=== PATIENT | male | born 1965 | race Caucasian/White ===

== ENCOUNTER 2018-09-14 00:06 | Outpatient (CLI) | payer OTHER, SELFPAY ==
--- NOTE | 2018-09-14 06:03 | MERGEMPI_ITS ---
*[facility]* *[facility]* [address] [place] [address] Myocardial Perfusion Imaging - SPECT Johnathan protocol Date of study: 09/14/2018 *PATIENT PRESENTATION* Height: 175.3cm (69in) Blood Pressure: Weight: 87.3kg (192lb) BSA: 2.08m^2 Referring physician: Earle Acre MD Ordering physician: Kelton Mccrary Impressions: Normal perfusion by Tc99m Sestamibi Imaging. Summary: 1. Myocardial perfusion imaging: No myocardial perfusion defects noted. 2. The calculated left ventricular ejection fraction after stress: 57%. No left ventricular regional motion abnormality. 3. Stress: The target heart rate was achieved. Indication: R06.9. History: REASON FOR TESTING: PATIENT REPORTS THAT OVER THE LAST 6 MONTHS HIS EXERCISE TOLERANCE HAS DECREASED FAIRLY MARKEDLY. WHEN HE TRIES TO CLIMB STAIRS OR WALK FAST HE NOTICES A RAPID HEART RATE AND SHORTNESS OF BREATH. HE DENIES ANY CHEST PAIN OR DIAPHORESIS WITH THESE ACTIVITIES. HE DENIES CHEST PAIN/PRESSURE AND SOB UPON ARRIVAL TO TESTING TODAY. SIGNIFICANT PAST MEDICAL HISTORY: HE DOES HAVE A FAMILY HOSTORY OF ISCHEMIC HEART DISEASE SMOKING STATUS: NEVER. EXERCISE ROUTINE: PATIENT IS A PENSIONS RETIREMENT PLAN SPECIALIST AND TRIES TO WALK MUCH HE CAN, THOUGH SOMETIMES IT CAN BE DIFFICULT. Risk factors: Family history of coronary artery disease. ALLERGIES: NO KNOWN MEDICATION ALLERGIES. MEDICATIONS: NO KNOWN HOME MEDICATIONS. Imaging Technique: Protocol: Johnathan protocol. Acquisition: Gated SPECT; 1 day - rest/stress. The patient was imaged in the supine position. Attenuation correction used. Isotope administration: - Rest. Tc[99m]-sestamibi. Dose: 10.5mCi. Injection time: 08:15 PM. Injection to stress time: 00:45. - Stress. Tc[99m]-sestamibi. Dose: 33.5mCi. Injection time: 10:45 AM. 1-2 min before end of exercise Baseline ECG: SINUS BRADYCARDIA. HR 55 BPM. Stress protocol: + +---+ + !Stage !HR !BP (mmHg) ! + +---+ + !Baseline supine !55 !120/82 (95) ! + +---+ + !Baseline standing !63 !120/86 (97) ! + +---+ + !Stage I; 1.7mph, 10degrees; 3 min !95 !140/84 (103)! + +---+ + !Stage II; 2.5mph, 12degrees; 3 min !110!156/90 (112)! + +---+ + !Stage III; 3.4mph, 14degrees; 3 min!132!168/90 (116)! + +---+ + !Recovery; 1 min !128!176/54 (95) ! + +---+ + !Recovery; 3 min !90 !150/78 (102)! + +---+ + !Recovery; 6 min !84 !120/78 (92) ! + +---+ + !Recovery; 9 min !81 !120/78 (92) ! + +---+ + * Stress results: STRESS TEST ENDED IN MINUTES SECONDS DUE TO LEG FATIGUE. NORMAL HEART RATE AND BLOOD PRESSURE RESPONSE TO EXERCISE. MAX HEART RATE: 158 PATIENT REPORTED BRIEF HEART PALPITATIONS IMMEDIATELY UPON RECOVERY. NO OTHER SYMPTOMS REPORTED. 94 % OF TARGET HEART RATE ACHIEVED. MET'S: 10.07 NO ECTOPY. NO ANGINA. NO SIGNIFICANT ST SEGMENT CHANGES. AVERAGE FUNCTIONAL CAPACITY. Maximal heart rate during stress was 158bpm (95% of maximal predicted heart rate). The maximal predicted heart rate was 167bpm. The target heart rate was achieved. The rate-pressure product for the peak heart rate and blood pressure was 24002uh Hg/min. Myocardial perfusion: Imaging information: gated. No myocardial perfusion defects noted. Ventricular Function (Wall Motion): The calculated left ventricular ejection fraction after stress: 57%. No left ventricular regional motion abnormality. Study data: Erale Arce MD supervised and was readily available during the procedure. This study was interpreted by [facility]. Study status: Routine. Consent: The risks, benefits, and alternatives to the procedure were explained to the patient and informed consent was obtained. Procedure: Initial setup. A baseline ECG was recorded. Surface ECG leads and manual cuff blood pressure measurements were monitored. Heart sounds: Normal. Lung sounds: Normal. Treadmill exercise testing was performed using the Johnathan protocol. Study completion: All catheters inserted during the procedure were removed. The patient tolerated the procedure well and was discharged from the lab. Discharge: The patient left the laboratory in stable condition. Birthdate: Patient birthdate: 1965. Sex: Gender: male. Study date: Study date: 09/14/2018. Study time: 00:01 AM. Electronically signed by Earle Arce MD 09/14/2018 17:42
[2018-09-14 07:38] LABS: HCT 46.7 % (40.0-50.0); HGB 16.2 g/dL (13.5-17.5); Mean Corp. HGB Concentration 34.7 g/dL (32.0-36.0); Mean Corpuscular Hemoglobin 31.3 pg (27.0-33.0); Mean Corpuscular Volume 90.2 fL (80-95); Mean Platelet Volume 11.1 fL (8.0-11.0); Platelet Count 172 x1000/uL (130-400); RBC 5.18 m/cumm (4.50-6.00); RBC Distribution Width 13.3 % (11.8-14.1); White Blood Cell Count 5.16 k/cumm (4.4-10.8)
[2018-09-14 09:44] LABS: Anion Gap 9.1 mmol/L (3-11); BUN 22 mg/dL (7-18); CO2 28.9 mmol/L (21.0-32.0); CREATININE 0.91 mg/dL (0.70-1.30); Calcium 8.9 mg/dL (8.5-10.1); Calculated LDL 167 mg/dL; Chloride 106 mmol/L (98-107); Cholesterol 236 mg/dL (50-200); Glucose 97 mg/dL (70-100); HDL Cholesterol 37 mg/dL (40-60); Potassium 4.4 mmol/L (3.5-5.1); Sodium 144 mmol/L (136-145); Triglyceride 160 mg/dL (30-150)
== END 2018-09-14 00:26 ==
PROVIDERS: PCP Family Medicine; Visit Provider Family Medicine
DX: R06.09 Other forms of dyspnea (principal); Z00.00 Encounter for general adult medical examination without abnormal findings; Z82.49 Family history of ischemic heart disease and other diseases of the circulatory system
CPT/HCPCS: 36415; 78452; 80048; 80061; 83721; 85027; 93017

== ENCOUNTER 2020-09-21 10:28 | Outpatient (CLI) | payer OTHER, SELFPAY ==
[2020-09-21 14:09] LABS: Calculated LDL 178 mg/dL (<100); Cholesterol 245 mg/dL (<200); HDL Cholesterol 43 mg/dL (40-60); Triglyceride 124 mg/dL (<150)
== END 2020-09-21 10:29 | disposition home or self-care (01) ==
LOC: LBO 10:28
PROVIDERS: PCP Nurse Practitioner; Visit Provider Nurse Practitioner
DX: E78.2 Mixed hyperlipidemia (principal)
CPT/HCPCS: 36415; 80061

== ENCOUNTER 2020-09-26 09:04 | Outpatient (REF) | payer OTHER, SELFPAY ==
[2020-09-28 16:04] LABS: Helicobacter pylori Ag, Feces Negative (Negative)
== END 2020-09-26 09:05 | disposition home or self-care (01) ==
LOC: NCHCN 09:04
PROVIDERS: PCP Nurse Practitioner; Visit Provider Nurse Practitioner
DX: R12 Heartburn (principal)
CPT/HCPCS: 87338

== ENCOUNTER 2021-07-30 07:26 | Day surgery (SDC) | payer OTHER, SELFPAY ==
--- NOTE | 2021-07-30 06:46 | W.COLOREPORT ---
Colonoscopy Report Date of procedure: 07/30/21 Pre-op diagnosis general: Colon Cancer Screening Post-op diagnosis procedure note: other (polyps and mild diverticulosis) Procedure: Colonoscopy with polypectomy Surgeon: Dahlia Cox Anesthesia Type: General:No Airway Estimated blood loss (mL): 5 Pathology: other (ascending polyps x2, transverse polyp and sigmoid polyp) Complications: None Disposition: same day Indications: The patient is here for Colonoscopy pre-op. He has no known family history of colon cancer, however reports a history of other GI malignancies (exact types unknown) in his mother and maternal uncles. He has not had any bowel habit changes. -Discussed colonoscopy bowel prep as well as the procedure. Discussed possible complications of the procedure to include bleeding, pain, perforation, missed small lesion/polyp, sore throat, aspiration and adverse reaction to the medications. Questions were answered to patient?s satisfaction. No guarantees were implied or given.? Prep: Miralax/Dulcolax Procedure Start Time: 09:16 Procedure End Time: 09:41 Retraction Time: 18 minutes Findings: 4 polyps mild diverticulosis Procedure Description: After informed consent was obtained the patient was taken to the procedure room and placed in a left decubitous position. Monitors were applied and a time out was done. The patients name, date of , procedure, allergies to medications and metal in their body was reviewed. The patient was then sedated. Once sedated and comfortable a rectal exam was done. External exam was normal. Internal exam revealed a normal sphincter tone and no palpable masses. The prostate felt smooth. The scope was then introduced and retro-flexed. No internal hemorrhoids, polyps or masses were identified on retro-flexion. The scope was then advanced to the cecum without difficulty. The ileocecal vlave and appendiceal orifice were identified. The prep was good. The scope was then slowly retracted over 13 minutes back into the rectum. Polyps were removed with a hot snare in the ascending colon x2, transverse colon x1 and sigmoid colon x1. There was mild sigmoid diverticulosis noted. The scope was removed and the patient was woken up and taken back to Same day surgery in stable condition. The patient tolerated the procedure well and there were no immediate complications. Follow up: The patient should follow up in 3-5 years unless they develop changes in bowel habits or other new gastrointestinal complaints.
--- NOTE | 2021-07-30 06:47 | W.PM.DSUDISC ---
Discharge Plan Disposition Patient Disposition: HOME Condition: Good Discharge Details Reason For Visit: colon cancer screening Attending Provider: Dahlia Cox Primary Care Provider: Imani Marte Home Meds and New Rx's Prescriptions: Discontinued bisacodyl [Dulcolax (bisacodyl)] 5 mg tablet,delayed release (DR/EC) 5 mg PO ONCE Qty: 4 0RF Rx Instructions: Take according to provider's instructions for colonoscopy prep. polyethylene glycol 3350 17 gram/dose powder 17 g PO ONCE Qty: 238 0RF Rx Instructions: To be taken as directed by prescriber's office for colonoscopy prep. Discharge Instructions Instructions: Colorectal Polyps (DC), Diverticulosis (DC) Additional Instructions: Findings: 4 polyps mild diverticulosis Follow up: 3-5 years Please call if you develop: fevers >101.5 Nausea or Vomiting Abdominal pain that is not transient Rectal bleeding that is more then a tbsp A hard abdomen and inability to pass gas DAY SURGERY UNIT POST ENDOSCOPY INSTRUCTIONS Instructions for everyone who is given Anesthesia: For your safety, please do the following for the next 24 Hours: a. Do not drive or operate dangerous equipment b. Do not drink alcohol beverages or use any recreational drugs for the first 24 hours or while taking pain medications. The medications in your body may have a reaction that can be dangerous. c. Do not make any important decisions or sign any important papers 1. Generally there are no restrictions on your activity after a day or so has gone by, but you may feel a bit fatigued for a few days. 2. After you arrive home you may have a light meal and return to a normal diet as you can tolerate it without feeling sick to your stomach. 3. After surgery, you may feel pain or discomfort. This should be only transient, but if it persists please contact your doctor. 4. If there are any questions regarding the findings of your procedure, please feel free to contact your doctor. 6. If you are unable to contact your doctor with a problem, contact the hospital at [phone]. 7. Continue all your regular medications unless directed otherwise. I understand the above instructions and have no questions. Signature of Patient or Responsible Adult Escort Date/Time Name of Responsible Adult Escort Signature of Nurse Date/Time Activity:: Activity as Tolerated Diet:: high fiber Discharge Orders Discharge Orders: Discharge Order (Routine); Ordered 07/30/21 Ordered By: Dahlia Cox
--- NOTE | 2021-07-30 08:05 | W.ANESPRE ---
General Info Date of Service Date Performed: 07/30/21 Height: 5 ft 7.5 in Weight: 87.713 kg Body Mass Index (BMI): 29.8 Surgical Procedure: Operation Date: 07/30/21 09:20 Proposed Procedure Side Surgeon p Colonoscopy Dahlia Cox MD Meds Allergies and Home Medications Allergies Allergy/AdvReac Type Severity Reaction Status Date / Time No Known Allergies Allergy Unverified 07/30/21 08:07 Home Medication Medication Instructions Recorded bisacodyl 5 mg tablet,delayed 5 mg PO ONCE #4 tabs 07/19/21 release (Dulcolax (bisacodyl)) polyethylene glycol 3350 17 17 g PO ONCE #238 grams 07/19/21 gram/dose oral powder Current Visit Medications: Current Medications Generic Name Dose Route Start Last Admin Trade Name Freq PRN Reason Stop Dose Admin Hyoscyamine Sulfate 0.125 mg 07/30/21 06:49 Hyoscyamine 0.125 Mg Sl/Oral/Chew SL DIRECTED PRN Ringer's Solution 1,000 mls @ 80 mls/hr 07/30/21 06:00 IV 08/26/21 23:59 [facility] IV Miscellaneous Supplies 1 each 07/30/21 06:00 Iv Access IV 08/26/21 23:59 DIRECTED SARWAT Ondansetron HCl 4 mg 07/30/21 06:49 Ondansetron 4 Mg/2 Ml Vial IVP Q4H PRN PRN Nausea / Vomiting Sodium Chloride 0 ml 07/30/21 06:00 Normal Saline Flush 10 Ml Syr IV 08/26/21 23:59 PRN PRN Sodium Chloride 0 ml 07/30/21 06:00 Normal Saline 10 Ml Vial IJ 08/26/21 23:59 DIRECTED PRN Sterile Water 0 ml 07/30/21 06:00 Water,Injection,Sterile 10 Ml Vial IJ 08/26/21 23:59 DIRECTED PRN PFSH Active Problems Active Problems: Problem Status Onset Code Screening for colon cancer Z12.11 Medical History Medical History (Updated 07/27/21 @ 13:52 by Gaurav Avilez) ADHD (attention deficit hyperactivity disorder), 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 stated this was b ecause he was exhausted and working too much Family history of ischemic heart disease (03/19/13) Heartburn Hyperlipidemia Idiopathic scoliosis (03/19/13) Inattention Ingrowing toenail Insomnia Lipoma Near syncope Onychomycosis Surgical History Surgical History (Updated 07/30/21 @ 08:17 by Zehra Scott) History of dental surgery top front teeth restored as a child due to sledding accident Tobacco Smoking/Tobacco Use Status: Never Passive smoking exposure: Yes Second hand exposure: Yes Alcohol Alcohol Intake: current Alcohol intake frequency: a few times a month Alcohol type: beer Substance Use Substance use: Never Substance use type: does not use Vital Signs and Lab Results Vital Signs Most Recent Vital Signs in EMR: Temp Pulse Resp BP Pulse Ox 36.4 C L 67 14 121/98 H 99 07/30/21 08:18 07/30/21 08:18 07/30/21 08:18 07/30/21 08:18 07/30/21 08:18 Lab Results Blood Type / Crossmatch: No Data to Display Complete Blood Count: No Data to Display Complete Metabolic Panel: No Data to Display Liver Function Panel: No Data to Display Coagulation Panel: No Data to Display Cardiac Panel: No Data to Display Arterial Blood Gas: No Data to Display Venous Blood Gas: No Data to Display Pancreas Panel: No Data to Display Thyroid Panel: No Data to Display Infectious Disease: No Data to Display Blood Cultures: No Data to Display Toxicology Panel: No Data to Display Imaging and Studies Imaging and Studies Study information below may be from another EMR and interpreted by another provider. Please see original notes in EMR for more complete details. Stress Test Summary: 2019: no prefusion defects noted. LVEF 57%. Anesthesia Assessment and Plan Anesthesia History Personal History: No History of Anesthesia Complications Family History: No Family History of Anesthesia Complications Exercise Tolerance Exercise Tolerance: Metabolic Equivalents>4 Cardiac & Pulmonary Exam Cardiac Exam: Normal S1/S2 Heart Sounds Pulmonary Exam: Clear Bilateral Breath Sounds Implantable Cardiac Device Does patient have a Pacemaker or an ICD?: No Airway Exam Known Difficult Airway: No Mallampati Class: 4 Mouth Opening: Narrow (< 3cm) Thyromental Distance: Greater than 3 cm Neck Range of Motion: Limited ROM Neck Circumference: Normal Teeth Condition: Normal Dentition ASA Classification ASA Score: ASA 2 Emergency Case?: No NPO Status NPO Status: NPO Clears >2 hours, Solids >8 hours Anesthesia Plan Resuscitation Status: Full Code Anesthesia Technique: General Anesthesia Airway Planned: Natural Airway Monitors Used: Standard Monitors Preoperative Comments:: 56 yo male for screening colonoscopy. Sig PMHx: GERD (mostly in the past and diet related, ADHD, never smoker, occ EtOH. Stress test 2019: LVEF 57%, no defects.
[2021-07-30 08:10] VITALS: BMI 29.8
[2021-07-30 08:18] VITALS: BP 121/98; PULSE 67; RESP 14; TEMP 36.4; O2SAT 99
[2021-07-30] MEDS: Lactated Ringers 1,000 ML 80 ML IV (08:40)
--- NOTE | 2021-07-30 09:22 | BOWEL_PTH ---
PATIENT: Mino Soni LOC: [facility] U#:[id number] AGE/SX: 56/M ROOM: RE07/30/[address]: Dahlia Cox MD : 1965 BED: DIS: 07/30/2021 SPEC #: [id number] RECD: 07/30/21 11:49 STATUS: RICKY REQ #: [id number] KATHLEEN: 07/30/21 09:[address]: Dahlia Cox DEPT: Surgical Specimen RECD BY: Amberly Rivera ENTERED: 07/30/21 11:51 SP TYPE: Bowel OTHR DR: Imani Marte APRN Tissues: 1 - BIOPSY BOWEL 2 - BIOPSY BOWEL 3 - BIOPSY BOWEL Procedures: GROSS AND MICRO LEVEL 4 Comments: [id number]
[2021-07-30 09:50] VITALS: BP 119/90; PULSE 65; RESP 16; TEMP 36.6; O2SAT 95
--- NOTE | 2021-07-30 09:53 | W.ANESPOSTOP ---
Postoperative Evaluation Date, Time and Location Date Performed: 07/30/21 Time Performed: 09:53 Patient Location: Day Surgery Unit Vital Signs Most Recent Imported Vital Signs: Most Recent Vital Signs Temp Pulse Resp BP Pulse Ox 36.6 C 65 16 119/90 95 07/30/21 09:50 07/30/21 09:50 07/30/21 09:50 07/30/21 09:50 07/30/21 09:50 Pain Score Most Recent Pain Score: Most Recent Pain Score Pain Level 0 07/30/21 09:50 Assessment Mental Status: Awake (Alert & Oriented to Patient Baseline) Airway and Respiratory Function: Patent airway with normal (patient baseline) respiratory exam Cardiovascular Function: Hemodynamically Stable Hydration Status: Adequately Hydrated Nausea & Vomiting: No Nausea or Vomiting Pain: Pt. Denies Any Pain Peripheral Nerve Block: Patient did not receive a nerve block
[2021-07-30 10:07] VITALS: BP 127/100; PULSE 63; RESP 17; TEMP 36.7; O2SAT 97
== END 2021-07-30 10:52 | disposition home or self-care (01) ==
PROVIDERS: PCP Nurse Practitioner; Visit Provider Surgery
PROC: 0DJD8ZZ Inspection of Lower Intestinal Tract, Via Natural or Artificial Opening Endoscopic (ICD-10-PCS; CPT 45378; principal; 2021-07-30 09:15)
DX: Z12.11 Encounter for screening for malignant neoplasm of colon (principal); K57.30 Diverticulosis of large intestine without perforation or abscess without bleeding; K63.5 Polyp of colon
CPT/HCPCS: 45385; 88305

== ENCOUNTER 2021-10-09 08:16 | Outpatient (CLI) | payer OTHER, SELFPAY ==
[2021-10-09 09:33] LABS: ALT 84 U/L (16-63); AST 36 U/L (15-37); Albumin 3.7 g/dL (3.4-5.0); Alkaline Phosphatase 112 U/L (46-116); Anion Gap 10.4 mmol/L (3-11); BUN 20 mg/dL (7-18); Bilirubin, Total 0.6 mg/dL (0.2-1.0); CO2 27.6 mmol/L (21.0-32.0); Calcium 8.9 mg/dL (8.5-10.1); Calculated LDL 169 mg/dL (<100); Chloride 103 mmol/L (98-107); Cholesterol 231 mg/dL (<200); Glucose 99 mg/dL (74-106); HDL Cholesterol 44 mg/dL (40-60); Sodium 141 mmol/L (136-145); Total Protein 6.8 g/dL (6.4-8.2); Triglyceride 90 mg/dL (<150)
== END 2021-10-09 08:17 | disposition home or self-care (01) ==
LOC: LBO 08:16
PROVIDERS: PCP Nurse Practitioner; Visit Provider Nurse Practitioner
DX: E78.2 Mixed hyperlipidemia (principal)
CPT/HCPCS: 36415; 80053; 80061

== ENCOUNTER 2021-12-10 09:17 | Outpatient (CLI) | payer OTHER, SELFPAY ==
[2021-12-10 10:08] LABS: ALT 128 U/L (16-63); AST 54 U/L (15-37); Albumin 3.9 g/dL (3.4-5.0); Alkaline Phosphatase 109 U/L (46-116); Bilirubin, Total 0.9 mg/dL (0.2-1.0); Calculated LDL 156 mg/dL (<100); Cholesterol 223 mg/dL (<200); HDL Cholesterol 53 mg/dL (40-60); Total Protein 7.3 g/dL (6.4-8.2); Triglyceride 74 mg/dL (<150)
[2021-12-10 10:20] LABS: Bilirubin, Direct 0.1 mg/dL (0.0-0.2)
[2021-12-10 18:29] LABS: PSA, Screening 2.4 ng/mL (<=3.5)
[2021-12-11 09:46] LABS: Hepatitis C Ab w Rflx HCV PCR Negative (Negative)
[2021-12-11 10:02] LABS: HIV-1/2 Ag & Ab Screen Negative (Negative)
== END 2021-12-10 09:18 | disposition home or self-care (01) ==
LOC: LBO 09:20
PROVIDERS: PCP Nurse Practitioner; Visit Provider Nurse Practitioner
DX: E78.2 Mixed hyperlipidemia (principal); R79.89 Other specified abnormal findings of blood chemistry; N40.0 Benign prostatic hyperplasia without lower urinary tract symptoms; Z12.5 Encounter for screening for malignant neoplasm of prostate; Z11.4 Encounter for screening for human immunodeficiency virus [HIV]; Z11.59 Encounter for screening for other viral diseases
CPT/HCPCS: 36415; 80061; 80076; 84153; 86803; 87389

== ENCOUNTER 2022-04-01 03:09 | Outpatient (CLI) | payer OTHER, SELFPAY ==
[2022-04-01 09:55] LABS: ALT 60 U/L (16-63); AST 40 U/L (15-37); Albumin 3.7 g/dL (3.4-5.0); Alkaline Phosphatase 102 U/L (46-116); Bilirubin, Direct 0.1 mg/dL (0.0-0.2); Bilirubin, Total 0.7 mg/dL (0.2-1.0); Total Protein 6.9 g/dL (6.4-8.2)
[2022-04-02 13:00] LABS: ANA Interpretation Negative (Negative)
[2022-04-02 14:05] LABS: HBs Antibody, Qual Negative (See Note); HBs Antibody, Quant <3.1 mIU/mL (See Note); Hepatitis B Core Antibody Negative (Negative); Hepatitis B surface Ag Negative (Negative); Hepatitis C Ab w Rflx HCV PCR Negative (Negative)
== END 2022-04-01 03:10 | disposition home or self-care (01) ==
LOC: LBO 03:09
PROVIDERS: PCP Nurse Practitioner; Visit Provider Nurse Practitioner
DX: R79.89 Other specified abnormal findings of blood chemistry (principal); E78.5 Hyperlipidemia, unspecified; N40.1 Benign prostatic hyperplasia with lower urinary tract symptoms; Z79.899 Other long term (current) drug therapy; F90.0 Attention-deficit hyperactivity disorder, predominantly inattentive type
CPT/HCPCS: 36415; 80076; 86704; 86706; 86803; 87340; 86038

== ENCOUNTER 2022-04-01 08:47 | Outpatient (CLI) | payer OTHER, SELFPAY ==
--- NOTE | 2022-04-01 08:45 | RT.EKG_ITS ---
APPROVED REPORT Exam: Resting ECG Reason for Exam: on [facility] Patient Location: O HR:68 bpm ECG Measurements Heart Rate 68 AXIS HI 173 P 15 QRSd 123 QRS -48 QT 423 T 91 QTc 450 Conclusion Sinus rhythm...normal P axis, V-rate 50- 99 Left anterior fascicular block Artifact in lead(s) I,II,III,aVR,aVL,aVF,V1,V2
== END 2022-04-01 08:48 | disposition home or self-care (01) ==
LOC: DI.KIM 08:48
PROVIDERS: PCP Nurse Practitioner; Visit Provider Nurse Practitioner
DX: Z51.81 Encounter for therapeutic drug level monitoring (principal); R94.31 Abnormal electrocardiogram [ECG] [EKG]; I44.4 Left anterior fascicular block
CPT/HCPCS: 93010

== ENCOUNTER 2022-11-19 09:49 | Day surgery (SDC) | payer BC, SELFPAY ==
[2022-11-19] VITALS (10 sets, daily range): BP systolic 100–122; BP diastolic 63–85; PULSE 53–72; RESP 16–23; TEMP 36.3–36.6; O2SAT 92–100; BMI 28.1
--- NOTE | 2022-11-19 10:15 | DI.CT_ITS ---
Exam(s) CT ABDOMEN PELVIS W EXAM: CT ABDOMEN PELVIS W CLINICAL HISTORY: RLQ abdominal pain. TECHNIQUE: Imaging Protocol: Axial computed tomography images with coronal and sagittal reformatted images were created and reviewed CONTRAST MATERIAL: Intravenous: Omnipaque-350 100cc Oral: None COMPARISON: No exams were available for comparison FINDINGS: VISUALIZED LUNG BASES: No nodules nor pleural effusions evident. ABDOMEN: There is no ascites. LIVER: There are no focal hepatic lesions evident. No dilated intrahepatic ducts. GALLBLADDER/BILIARY: No obvious gallbladder pathology. CBD is not dilated. PANCREAS: No evidence of pancreatic mass nor dilatation of the pancreatic duct. SPLEEN: Spleen is not enlarged. No obvious intrasplenic lesions. Splenic and portal veins are paten t. ADRENALS: There are no significant adrenal masses. KIDNEYS:No cysts evident. No solid renal masses. No calculi nor hydronephrosis.. ABDOMINAL AORTA: Abdominal aorta is not enlarged. LYMPH NODES:There is no retroperitoneal nor paraaortic adenopathy. ABDOMINAL WALL: No evidence of significant anterior abdominal wall nor inguinal hernia. GI: No evidence of bowel obstruction PELVIS: GI: The appendix is abnormal. Contains appendicoliths and is also swollen-thickened to diameter 1 cm . Mild periappendiceal streaking. No free air. No abscess.Consistent with acute appendicitis. The re is no significant sigmoid diverticular disease. Colon is mostly collapsed. LYMPH NODES: There is no intrapelvic nor inguinal adenopathy. REPRODUCTIVE: Prostate size upper normal. Seminal vesicles unremarkable. URINARY BLADDER: No calculi nor obvious masses evident OSSEOUS: No fractures and no significant osseous lesions. 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 IMPRESSION: 1. Findings are consistent with acute appendicitis. No evidence of rupture nor periappendiceal absce ss at this time. Report called by myself to ER provider. RADIATION DOSE DELIVERED: 764.27mGy.cm Total DLP DATA REPOSITORY: All CT scans at this facility are submitted to the National Radiology Data Registry (NRDR) Dose Index Registry (DIR) with the [employer] (ACR). RADIATION OPTIMIZATION: All CT scans at this facility use at least one of these dose optimization te chniques: automated exposure control; mA and/or kV adjustment per patient size (includes targeted exa ms where dose is matched to clinical indication); or iterative reconstruction.
[2022-11-19] MEDS: Ondansetron 4 MG/2 ML VIAL IVP (10:24)
[2022-11-19] MEDS: MORPHine 4 MG/ML SYR IVP (10:24)
[2022-11-19] MEDS: Normal Saline 1,000 ML 1000 ML IV (10:28)
[2022-11-19 10:31] LABS: Lactate 0.9 mmol/L (0.6-1.4)
[2022-11-19 10:32] LABS: Abs Immature Grans 0.04 10^3/uL (0.0-0.06); Absolute Basophil Count 0.05 10^3/uL (0.0-0.2); Absolute Eosinophil Count 0.02 10^3/uL (0.0-0.7); Absolute Lymphocyte Count 1.01 10^3/uL (1.2-3.4); Absolute Monocyte Count 0.69 10^3/uL (0.1-0.8); Absolute Neutrophil Count 10.07 10^3/uL (1.2-6.7); Basophils % 0.4; Eosinophils % 0.2; HCT 45.1 % (40.0-50.0); HGB 15.2 g/dL (13.5-17.5); Immature Grans % 0.3; Lymphocytes % 8.5; MCH 31.3 pg (27.0-33.0); MCHC 33.7 % (32.0-36.0); MCV 93 fL (80-95); MPV 10.7 fL (8.0-11.0); Monocytes % 5.8; Neutrophils % 84.8; Platelet Count 182 10^3/uL (130-400); RBC 4.86 10^6/uL (4.36-5.78); RDW 13.1 % (11.8-14.1); RDW-SD 44.8 fL; WBC 11.88 10^3/uL (4.4-10.8)
--- NOTE | 2022-11-19 10:33 | ED.GENADUL_ITS ---
Discharge Plan Disposition Patient Disposition: Other Disposition Not Listed Other Facility: To OR, pending admit vs discharge from PACU Condition: Serious Discharge Details Chief Complaint: Abd Prob Clinical Impression: Appendicitis Attending Provider: Lor Hendricks Primary Care Provider: Imani Marte ED Provider: Korin Cuadra Discharge Data Discharge Date/Time-TO BE ENTERED AT DEPARTURE: 11/19/22 12:08 Medical Decision Making 57yo M with hx BPH presenting with severe acute RLQ abdominal pain. Vital signs reassuring, RLQ tenderness with rebound and guarding on exam very concerning for appendicitis. IV morphine and IV zofran for symptoms. Labs reviewed as below, CBC & CMP reassuring, mild leukocytosis, lipase normal, lactate normal. CT abd/pelvis independently reviewed, acute appendicitis, agree with radiology read below. IV zosyn ordered and Dr. Hendricks from surgery consulted; patient taken to OR. Imaging Data Radiologic Study: Imaging: CT Scan Radiologist's impression: IMPRESSION: 1. Findings are consistent with acute appendicitis.? No evidence of rupture nor periappendiceal abscess at this time. Lab Data Lab results reviewed: Yes I reviewed the patient's lab results. Labs: Laboratory Tests Range/Units 11/19/22 11/19/22 11/19/22 10:13 10:13 10:13 WBC (4.4-10.8) 10^3/uL 11.88 H RBC (4.36-5.78) 10^6/uL 4.86 Hgb (13.5-17.5) g/dL 15.2 Hct (40.0-50.0) % 45.1 MCV (80-95) fL 93 MCH (27.0-33.0) pg 31.3 MCHC (32.0-36.0) % 33.7 RDW (11.8-14.1) % 13.1 Plt Count (130-400) 10^3/uL 182 MPV (8.0-11.0) fL 10.7 Immature Gran % 0.3 Neutrophils % 84.8 Lymphocytes % 8.5 Monocytes % 5.8 Eosinophils % 0.2 Basophils % 0.4 Nucleated RBC % (0.0-0.3) % 0.0 Absolute Neutrophils (1.2-6.7) 10^3/uL 10.07 H Absolute Lymphocytes (1.2-3.4) 10^3/uL 1.01 L Absolute Monocytes (0.1-0.8) 10^3/uL 0.69 Absolute Eosinophils (0.0-0.7) 10^3/uL 0.02 Absolute Basophils (0.0-0.2) 10^3/uL 0.05 VBG Lactate (0.6-1.4) mmol/L 0.9 Sodium (136-145) mmol/L 140 Potassium (3.5-5.1) mmol/L 3.5 Chloride (98-107) mmol/L 104 Carbon Dioxide (21.0-32.0) mmol/L 30.0 Anion Gap (3-11) mmol/L 6.0 BUN (7-18) mg/dL 24 H Creatinine (0.70-1.30) mg/dL 0.9 Est GFR (CKD-EPI 2020) (mL/min/1.73m2) 99.62 Glucose (74-106) mg/dL 126 H Calcium (8.5-10.1) mg/dL 9.2 Total Bilirubin (0.2-1.0) mg/dL 0.8 AST (15-37) U/L 28 ALT (16-63) U/L 61 Alkaline Phosphatase (46-116) U/L 93 Total Protein (6.4-8.2) g/dL 6.8 Albumin (3.4-5.0) g/dL 3.8 Lipase (16-77) U/L 21 Urine Color (Yellow) Urine Clarity (Clear) Urine pH (5-8) Ur Specific [place] (1.005-1.025) Urine Protein (Negative) mg/dL Urine Ketones (Negative) mg/dL Urine Blood (Negative) Urine Nitrite (Negative) Urine Bilirubin (Negative) Urine Urobilinogen (Up to 0.2) mg/dL Ur Leukocyte Esterase (Negative) Urine Glucose (Negative) mg/dL Range/Units 11/19/22 11:28 WBC (4.4-10.8) 10^3/uL RBC (4.36-5.78) 10^6/uL Hgb (13.5-17.5) g/dL Hct (40.0-50.0) % MCV (80-95) fL MCH (27.0-33.0) pg MCHC (32.0-36.0) % RDW (11.8-14.1) % Plt Count (130-400) 10^3/uL MPV (8.0-11.0) fL Immature Gran % Neutrophils % Lymphocytes % Monocytes % Eosinophils % Basophils % Nucleated RBC % (0.0-0.3) % Absolute Neutrophils (1.2-6.7) 10^3/uL Absolute Lymphocytes (1.2-3.4) 10^3/uL Absolute Monocytes (0.1-0.8) 10^3/uL Absolute Eosinophils (0.0-0.7) 10^3/uL Absolute Basophils (0.0-0.2) 10^3/uL VBG Lactate (0.6-1.4) mmol/L Sodium (136-145) mmol/L Potassium (3.5-5.1) mmol/L Chloride (98-107) mmol/L Carbon Dioxide (21.0-32.0) mmol/L Anion Gap (3-11) mmol/L BUN (7-18) mg/dL Creatinine (0.70-1.30) mg/dL Est GFR (CKD-EPI 2020) (mL/min/1.73m2) Glucose (74-106) mg/dL Calcium (8.5-10.1) mg/dL Total Bilirubin (0.2-1.0) mg/dL AST (15-37) U/L ALT (16-63) U/L Alkaline Phosphatase (46-116) U/L Total Protein (6.4-8.2) g/dL Albumin (3.4-5.0) g/dL Lipase (16-77) U/L Urine Color (Yellow) Yellow Urine Clarity (Clear) Clear Urine pH (5-8) 7.0 Ur Specific [place] (1.005-1.025) 1.010 Urine Protein (Negative) mg/dL Trace H Urine Ketones (Negative) mg/dL 15 H Urine Blood (Negative) Negative Urine Nitrite (Negative) Negative Urine Bilirubin (Negative) Negative Urine Urobilinogen (Up to 0.2) mg/dL 0.2 Ur Leukocyte Esterase (Negative) Negative Urine Glucose (Negative) mg/dL Negative HPI General Mode of arrival: ambulatory . Date/Time Provider Initiated Documentation: 11/19/22 09:53 . Limitations to Documentation: no limitations . Information obtained by: patient . HPI Narrative: 57yo M with hx BPH presenting for acute abdominal pain. Pain started overnight and is severe and worsening. Pain is diffuse, but it hurts to touch his right lower abdomen. Nausea, no vomiting. Normal bowel movement this morning. He is otherwise in his usual state of health with no fevers, chills, rash, bloody stool, dysuria, hematuria, flank pain, chest pain, shortness of breath, or other concerns. Related Data Home Medications Medication Instructions Recorded Confirmed acetaminophen 500 mg tablet 1,000 mg PO Q6H PRN headache/pain 08/17/21 11/19/22 (Tylenol Extra Strength) cetirizine 10 mg capsule (Zyrtec) 10 mg PO DAILY PRN 08/17/21 11/19/22 ibuprofen 600 mg tablet 600 mg PO Q6H PRN 08/17/21 11/19/22 dextroamphetamine-amphetamine ER 30 mg PO DAILY #28 caps 09/23/22 09/23/22 30 mg 24hr capsule,extend release dextroamphetamine-amphetamine ER 30 mg PO DAILY #28 caps 09/23/22 09/23/22 30 mg 24hr capsule,extend release dextroamphetamine-amphetamine ER 30 mg PO DAILY #28 caps 09/23/22 11/19/22 30 mg 24hr capsule,extend release (Adderall XR) tamsulosin 0.4 mg capsule (Flomax) 0.8 mg PO DAILY #180 caps 11/04/22 11/19/22 Previous Rx's Medication Instructions Recorded dextroamphetamine-amphetamine ER 30 mg PO DAILY #28 caps 09/23/22 30 mg 24hr capsule,extend release dextroamphetamine-amphetamine ER 30 mg PO DAILY #28 caps 09/23/22 30 mg 24hr capsule,extend release dextroamphetamine-amphetamine ER 30 mg PO DAILY #28 caps 09/23/22 30 mg 24hr capsule,extend release (Adderall XR) tamsulosin 0.4 mg capsule (Flomax) 0.8 mg PO DAILY #180 caps 11/04/22 Allergies Allergy/AdvReac Type Severity Reaction Status Date / Time DEET Allergy Unknown Uncoded 11/19/22 09:53 Seasonal allergies Allergy Unknown Uncoded 11/19/22 09:53 General Stated Complaint: Abd Prob ROBIN: 3 Review of Systems Narrative: see HPI PFSH All Active Problems (Updated 11/19/22 @ 12:43 by Korin Cuadra MD) Appendicitis (Acute) Acute appendicitis (Acute) BPH w urinary obs/LUTS (Acute) Gallbladder polyp (Acute) ADHD (attention deficit hyperactivity disorder), inattentive type (Acute 03/12/16) Hyperlipidemia (Acute) Tubulovillous adenoma of colon (Acute) Tubular adenoma of colon (Acute) Screening for colon cancer (Acute) Medical History 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 stated this was b ecause he was exhausted and working too much Family history of ischemic heart disease (03/19/13) Heartburn Idiopathic scoliosis (03/19/13) Inattention Ingrowing toenail Insomnia Lipoma Near syncope Onychomycosis Surgical History History of colonoscopy (~07/2021) History of dental surgery top front teeth restored as a child due to sledding accident Family History Mother Breast cancer Mass of colon non cancer Father Alcohol abuse Depression Sister No problems noted. Brother No problems noted. Maternal Grandfather , late 70s Heart disease Hyperlipidemia Hypertension Lung disease Paternal Grandfather , 60 Parkinson disease Maternal Grandmother , late 70s Diabetes Heart disease Paternal Grandmother , early 80s Heart disease Daughter Sensitive skin Daughter Sensitivity to sunlight Social History Smoking/Tobacco Use Status: Never Second Hand Exposure: Yes Smoking risk assessment performed?: Yes Alcohol Intake: current Alcohol Intake frequency: a few times a month Alcohol type: beer Drug use: Never Substance use type: does not use Details: alcohol: t-3, beer Adopted: No Caregiver/Support person: No Foster care: No Household members: significant other and children Housing: house Number of Children: 3 number of grandchildren: 9 Communication Needs: Hard of Hearing and Corrective Lenses Education Level: high school Do you need help understanding health information?: Rarely current occupation: septic pump truck driver Pets and animals: Yes Pets and animals: cat(s) and dog(s) Sexually active: Yes Do you think of yourself as: straight/heterosexual Current gender identity: male What is your relationship status?: living with partner How often do you talk on the phone with friends or family?: twice per week How often do you attend pentecostalism or mormon services?: 1-3 times per year Do you belong to any clubs or organized social groups?: no Panel score (0-1 are the most socially isolated patients): 1 What type of physical activity do you participate in: none Duration: 15-30 minutes/day Frequency: 1-2 times per week Lyla/Sabianist: Temple Special lyla needs: No Seatbelt use: always Helmet use: Yes Helmet use: always Drive intox 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 Head: Normocephalic, atraumatic Neck: Trachea midline, Neck supple. ENT: MMM. No oropharygeal lesions or exudate. Cardiac: RRR, no murmurs appreciated Resp: No respiratory distress. CTAB. Abd: Soft, non-distended. Guarding on right. Rebound tenderness RLQ. : No suprapubic tenderness. Extremities: No deformities. No peripheral edema. Neurologic: GCS 15. Moves all extremities freely against gravity Course Vital Signs Vital signs: Vital Signs Temperature 36.6 C 11/19/22 09:49 Pulse 60 11/19/22 09:49 Respiratory Rate 16 11/19/22 09:49 Blood Pressure 115/81 11/19/22 09:49 Pulse Oximetry 98 11/19/22 09:49 Temperature 36.6 C 11/19/22 09:49 Temperature Source Temporal Artery Scan 11/19/22 09:49 Pulse 60 11/19/22 09:49 Respiratory Rate 16 11/19/22 09:49 Respiratory Effort Normal 11/19/22 09:52 Blood Pressure 115/81 11/19/22 09:49 Blood Pressure Position Sitting 11/19/22 09:49 Pulse Oximetry 98 11/19/22 09:49 Oxygen Delivery Method Room Air 11/19/22 09:49 Oxygen Flow Rate 0 11/19/22 09:49 Pain Level 8 11/19/22 09:49 PAWSS Have you Been Recently Intoxicated or Drunk Within the Last 30 days?: No Have you Ever Experienced Previous Episodes of Alcohol Withdrawal?: No Have you ever Experienced Withdrawal Seizures?: No Have you ever Experienced Delirium Tremens(DT)s?: No Have you ever undergone Alcohol Rehabilitation Treatment (i.e, inpt ot outpatient treatment programs)?: No Have you ever Experienced Blackouts?: No Have you ever Combined Alcohol with other Downers within the last 90 days?: No Have you ever Combined Alcohol with any other Substance of Abuse during the last 90 days?: No Result: 0
[2022-11-19] MEDS: Normal Saline - Diluent 50 ML VIAL IJ (10:37)
[2022-11-19] MEDS: Normal Saline Flush 10 ML SYR IVP (10:38)
[2022-11-19] MEDS: Omnipaque 350 MG/ML 500 ML BTL-Imaging package 100 ML IJ (10:38)
[2022-11-19 10:53] LABS: ALT 61 U/L (16-63); AST 28 U/L (15-37); Albumin 3.8 g/dL (3.4-5.0); Alkaline Phosphatase 93 U/L (46-116); BUN 24 mg/dL (7-18); Bilirubin, Total 0.8 mg/dL (0.2-1.0); CREATININE 0.9 mg/dL (0.70-1.30); Calcium 9.2 mg/dL (8.5-10.1); Chloride 104 mmol/L (98-107); Estimated GFR 99.62 (mL/min/1.73m2); Glucose 126 mg/dL (74-106); Lipase 21 U/L (16-77); Potassium 3.5 mmol/L (3.5-5.1); Sodium 140 mmol/L (136-145); Total Protein 6.8 g/dL (6.4-8.2)
--- NOTE | 2022-11-19 11:32 | HPE_ITS ---
Date of service: 11/19/22 Time of Service: 11:32 Assessment and Plan Assessment and plan (1) Acute appendicitis: Status: Acute Assessment and plan: Informed consent is obtained for the procedural (explained in simple layman's terms that the pt and/or family could understand) explaining risks vs benefits and alternatives to the procedure and consequences if we do not do the procedure. Risks include but are not limited to: bleeding, infections, pneumonia, blood clots/DVT/PE, anesthesia (aspiration, damage to teeth/airway/ND/CVA//prolonged mechanical ventilation/PTX/IV infections), damage to bowel, bladder, blood vessels, Wound infections requiring further surgery. ?Scarring and disfigurement. Subsequent bowel obstructions from scar tissue.? Chronic pain or numbness from the incision, or hernia. Possible open procedure if minimally invasive procedure is being attempted. (2) BPH w urinary obs/LUTS: Status: Acute (3) ADHD (attention deficit hyperactivity disorder), inattentive type: Status: Acute (4) Hyperlipidemia: Status: Acute Qualifiers: Hyperlipidemia type: moderate mixed hyperlipidemia not requiring statin therapy Qualified Code(s): E78.2 - Mixed hyperlipidemia (5) Tubulovillous adenoma of colon: Status: Acute History of Present Illness Narrative: Patient is a 57-year-old male who presented to the ER complaining of right lower quadrant abdominal pain and nausea. The pain started last night. Denies any other trauma or bad foods. He has never had pain like this before. He feels nauseous. He was had fever and sweats. He has no appetite. He has no prior history of any abdominal surgery. His only surgery was a colonoscopy. He had no problems with anesthesia. Past medical history noted. He does not smoke. CT 11/19 GI: The appendix is abnormal.? Contains appendicoliths and is also swollen- thickened to diameter 1 cm.? Mild periappendiceal streaking.? No free air.? No abscess.Consistent with acute appendicitis.? There is no significant sigmoid diverticular disease.? Colon is mostly collapsed. 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 stated this was b ecause he was exhausted and working too much Family history of ischemic heart disease (03/19/13) Heartburn Idiopathic scoliosis (03/19/13) Inattention Ingrowing toenail Insomnia Lipoma Near syncope Onychomycosis Surgical History History of colonoscopy (~07/2021) History of dental surgery top front teeth restored as a child due to sledding accident Family History Mother Breast cancer Mass of colon non cancer Father Alcohol abuse Depression Sister No problems noted. Brother No problems noted. Maternal Grandfather , late 70s Heart disease Hyperlipidemia Hypertension Lung disease Paternal Grandfather , 60 Parkinson disease Maternal Grandmother , late 70s Diabetes Heart disease Paternal Grandmother , early 80s Heart disease Daughter Sensitive skin Daughter Sensitivity to sunlight Social History Smoking/Tobacco Use Status: Never Second Hand Exposure: Yes Smoking risk assessment performed?: Yes Alcohol Intake: current Alcohol Intake frequency: a few times a month Alcohol type: beer Drug use: Never Substance use type: does not use Details: alcohol: t-3, beer Adopted: No Caregiver/Support person: No Foster care: No Household members: significant other and children Housing: house Number of Children: 3 number of grandchildren: 9 Communication Needs: Hard of Hearing and Corrective Lenses Education Level: high school Do you need help understanding health information?: Rarely current occupation: rear load truck driver Pets and animals: Yes Pets and animals: cat(s) and dog(s) Sexually active: Yes Do you think of yourself as: straight/heterosexual Current gender identity: male What is your relationship status?: living with partner How often do you talk on the phone with friends or family?: twice per week How often do you attend confucianism or orthodoxy services?: 1-3 times per year Do you belong to any clubs or organized social groups?: no Panel score (0-1 are the most socially isolated patients): 1 What type of physical activity do you participate in: none Duration: 15-30 minutes/day Frequency: 1-2 times per week Lyla/Lutheran: Episcopalian Special lyla needs: No Seatbelt use: always Helmet use: Yes Helmet use: always Drive intox or ride w/intox commercial driver's license driver: No Do you feel safe at home: Yes Do you feel safe in your relationship?: Yes Meds Allergies and Home Medications Allergies Allergy/AdvReac Type Severity Reaction Status Date / Time DEET Allergy Unknown Uncoded 11/19/22 09:53 Seasonal allergies Allergy Unknown Uncoded 11/19/22 09:53 Home Medications Medication Instructions Recorded Confirmed Type acetaminophen 500 mg tablet 1,000 mg PO Q6H PRN headache/pain 08/17/21 11/19/22 History (Tylenol Extra Strength) cetirizine 10 mg capsule (Zyrtec) 10 mg PO DAILY PRN 08/17/21 11/19/22 History ibuprofen 600 mg tablet 600 mg PO Q6H PRN 08/17/21 11/19/22 History dextroamphetamine-amphetamine ER 30 mg PO DAILY #28 caps 09/23/22 09/23/22 Rx 30 mg 24hr capsule,extend release dextroamphetamine-amphetamine ER 30 mg PO DAILY #28 caps 09/23/22 09/23/22 Rx 30 mg 24hr capsule,extend release dextroamphetamine-amphetamine ER 30 mg PO DAILY #28 caps 09/23/22 11/19/22 Rx 30 mg 24hr capsule,extend release (Adderall XR) tamsulosin 0.4 mg capsule (Flomax) 0.8 mg PO DAILY #180 caps 11/04/22 11/19/22 Rx Exam Const Other: PHYSICAL EXAM GENERAL APPEARANCE: Alert, healthy appearance, oriented, x 3,? in no acute distress HYDRATION: Well hydrated HEAD, EYES, EARS, NECK, THROAT: Head is normocephalic, pupils equal, round, reactive to light and accommodation, ocular movement intact, sclera clear and no jaundice. ?Dentition intact. LUNGS: normal respiration/normal chest excursion. ?Clear to auscultation bilaterally. ?No wheeze. ?HEART: Regular rate and rhythm. no murmurs ABDOMEN: hypoactive BS. RLQ pain/no radiation. ? No hernias.? Results Labs 11/19/22 10:13 11/19/22 10:13 Labs: Laboratory Results - last 24 hr 11/19/22 11/19/22 11/19/22 10:13 10:13 10:13 WBC 11.88 H RBC 4.86 Hgb 15.2 Hct 45.1 MCV 93 MCH 31.3 MCHC 33.7 RDW 13.1 Plt Count 182 MPV 10.7 Immature Gran % 0.3 Neutrophils % 84.8 Lymphocytes % 8.5 Monocytes % 5.8 Eosinophils % 0.2 Basophils % 0.4 Nucleated RBC % 0.0 Absolute Neutrophils 10.07 H Absolute Lymphocytes 1.01 L Absolute Monocytes 0.69 Absolute Eosinophils 0.02 Absolute Basophils 0.05 VBG Lactate 0.9 Sodium 140 Potassium 3.5 Chloride 104 Carbon Dioxide 30.0 Anion Gap 6.0 BUN 24 H Creatinine 0.9 Est GFR (CKD-EPI 2020) 99.62 Glucose 126 H Calcium 9.2 Total Bilirubin 0.8 AST 28 ALT 61 Alkaline Phosphatase 93 Total Protein 6.8 Albumin 3.8 Lipase 21 Last Vital Signs Temp 36.6 C 11/19/22 09:49 Pulse 60 11/19/22 09:49 Resp 16 11/19/22 09:49 BP 115/81 11/19/22 09:49 Pulse Ox 98 11/19/22 09:49 PAWSS Have you Been Recently Intoxicated or Drunk Within the Last 30 days?: No Have you Ever Experienced Previous Episodes of Alcohol Withdrawal?: No Have you ever Experienced Withdrawal Seizures?: No Have you ever Experienced Delirium Tremens(DT)s?: No Have you ever undergone Alcohol Rehabilitation Treatment (i.e, inpt ot outpatien t treatment programs)?: No Have you ever Experienced Blackouts?: No Have you ever Combined Alcohol with other Downers within the last 90 days?: No Have you ever Combined Alcohol with any other Substance of Abuse during the last 90 days?: No Result: 0 Time Spent Time spent with Patient: 40-54 minutes Time was spent: preparing to see the patient(eg.review tests), obtaining and/or reviewing separately otained hiistory, ordering medications,tests, procedures, referring, communicating with other health health care legal assistant, indepentently interpreting results, counseling the patient and care coordination
--- NOTE | 2022-11-19 11:34 | ANES.PREOP_ITS ---
General Info Date of Service Date Performed: 11/19/22 Height: 5 ft 7 in Weight: 81.647 kg Body Mass Index (BMI): 28.1 Meds Allergies and Home Medications Allergies Allergy/AdvReac Type Severity Reaction Status Date / Time DEET Allergy Unknown Uncoded 11/19/22 09:53 Seasonal allergies Allergy Unknown Uncoded 11/19/22 09:53 Home Medication Medication Instructions Recorded acetaminophen 500 mg tablet 1,000 mg PO Q6H PRN headache/pain 08/17/21 (Tylenol Extra Strength) cetirizine 10 mg capsule (Zyrtec) 10 mg PO DAILY PRN 08/17/21 ibuprofen 600 mg tablet 600 mg PO Q6H PRN 08/17/21 dextroamphetamine-amphetamine ER 30 mg PO DAILY #28 caps 09/23/22 30 mg 24hr capsule,extend release dextroamphetamine-amphetamine ER 30 mg PO DAILY #28 caps 09/23/22 30 mg 24hr capsule,extend release dextroamphetamine-amphetamine ER 30 mg PO DAILY #28 caps 09/23/22 30 mg 24hr capsule,extend release (Adderall XR) tamsulosin 0.4 mg capsule (Flomax) 0.8 mg PO DAILY #180 caps 11/04/22 Current Visit Medications: Current Medications Generic Name Dose Route Start Last Admin Trade Name Freq PRN Reason Stop Dose Admin Piperacillin Sod/Tazobactam 100 mls @ 200 mls/hr 11/19/22 11:25 Sod 4.5 gm/ Sodium Chloride IVPB 11/19/22 11:54 NOW ONE Iohexol 100 ml 11/19/22 10:45 11/19/22 10:38 Omnipaque 350 Mg/Ml 500 Ml Btl-Imaging Package IJ 12/19/22 23:59 100 ml DIRECTED SARWAT Administration Morphine Sulfate 4 mg 11/19/22 10:13 11/19/22 10:24 Morphine 4 Mg/Ml Syr IVP 4 mg Q1H PRN PRN Administration Ondansetron HCl 4 mg 11/19/22 10:13 11/19/22 10:24 Ondansetron 4 Mg/2 Ml Vial IVP 4 mg Q4H PRN PRN Administration Sodium Chloride 50 ml 11/19/22 10:45 11/19/22 10:37 Normal Saline - Diluent 50 Ml Vial IJ 50 ml .FOR DI USE SARWAT Administration Sodium Chloride 0 ml 11/19/22 10:38 11/19/22 10:38 Normal Saline Flush 10 Ml Syr IVP 10 ml PRN PRN Administration PFSH Active Problems Active Problems: Problem Status Onset Code Acute appendicitis K35.80 BPH w urinary obs/LUTS N40.1, N13.8 Gallbladder polyp K82.4 ADHD (attention deficit hyperactivity disorder), inattentive type 03/12/16 F90.0 Hyperlipidemia E78.5 Tubulovillous adenoma of colon D12.6 Tubular adenoma of colon D12.6 Screening for colon cancer Z12.11 Medical History Medical History 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 stated this was b ecause he was exhausted and working too much Family history of ischemic heart disease (03/19/13) Heartburn Idiopathic scoliosis (03/19/13) Inattention Ingrowing toenail Insomnia Lipoma Near syncope Onychomycosis Surgical History Surgical History History of colonoscopy (~07/2021) History of dental surgery top front teeth restored as a child due to sledding accident Tobacco Smoking/Tobacco Use Status: Never Passive smoking exposure: No Second hand exposure: Yes Alcohol Alcohol Intake: current Alcohol intake frequency: a few times a month Alcohol type: beer Substance Use Substance use: Never Substance use type: does not use Details: alcohol: t-3, beer Vital Signs and Lab Results Vital Signs Most Recent Vital Signs in EMR: Most Recent Vital Signs Temp Pulse Resp BP Pulse Ox 36.6 C 60 16 115/81 98 11/19/22 09:49 11/19/22 09:49 11/19/22 09:49 11/19/22 09:49 11/19/22 09:49 Lab Results 11/19/22 10:13 11/19/22 10:13 Blood Type / Crossmatch: No Data to Display Complete Blood Count: White Blood Count 11.88 10^3/uL (4.4-10.8) H 11/19/22 10:13 Red Blood Count 4.86 10^6/uL (4.36-5.78) 11/19/22 10:13 Hemoglobin 15.2 g/dL (13.5-17.5) 11/19/22 10:13 Hematocrit 45.1 % (40.0-50.0) 11/19/22 10:13 Platelet Count 182 10^3/uL (130-400) 11/19/22 10:13 Venous Blood Lactate 0.9 mmol/L (0.6-1.4) 11/19/22 10:13 Complete Metabolic Panel: Sodium 140 mmol/L (136-145) 11/19/22 10:13 Potassium 3.5 mmol/L (3.5-5.1) 11/19/22 10:13 Chloride 104 mmol/L (98-107) 11/19/22 10:13 Carbon Dioxide 30.0 mmol/L (21.0-32.0) 11/19/22 10:13 BUN 24 mg/dL (7-18) H 11/19/22 10:13 Creatinine 0.9 mg/dL (0.70-1.30) 11/19/22 10:13 Est GFR (CKD-EPI 2020) 99.62 (mL/min/1.73m2) 11/19/22 10:13 Calcium 9.2 mg/dL (8.5-10.1) 11/19/22 10:13 Albumin 3.8 g/dL (3.4-5.0) 11/19/22 10:13 Glucose 126 mg/dL (74-106) H 11/19/22 10:13 Liver Function Panel: Alanine Aminotransferase (ALT/SGPT) 61 U/L (16-63) 11/19/22 10: 13 Aspartate Amino Transf (AST/SGOT) 28 U/L (15-37) 11/19/22 10:13 Coagulation Panel: No Data to Display Cardiac Panel: No Data to Display Arterial Blood Gas: No Data to Display Venous Blood Gas: No Data to Display Pancreas Panel: Lipase 21 U/L (16-77) 11/19/22 10:13 Thyroid Panel: No Data to Display Infectious Disease: No Data to Display Blood Cultures: No Data to Display Toxicology Panel: No Data to Display Imaging and Studies Imaging and Studies Study information below may be from another EMR and interpreted by another provider. Please see original notes in EMR for more complete details. Stress Test Summary: 2019: no prefusion defects noted. LVEF 57%. Anesthesia Assessment and Plan Anesthesia History Personal History: No History of Anesthesia Complications Family History: No Family History of Anesthesia Complications Exercise Tolerance Exercise Tolerance: Metabolic Equivalents>4 Cardiac & Pulmonary Exam Cardiac Exam: Normal S1/S2 Heart Sounds Pulmonary Exam: Clear Bilateral Breath Sounds Implantable Cardiac Device Does patient have a Pacemaker or an ICD?: No Airway Exam Known Difficult Airway: No Mallampati Class: 4 Mouth Opening: Narrow (< 3cm) Thyromental Distance: Greater than 3 cm Neck Range of Motion: Limited ROM Neck Circumference: Normal Teeth Condition: Normal Dentition ASA Classification ASA Score: ASA 2 Emergency Case?: Yes NPO Status NPO Status: NPO Clears >2 hours, Solids >8 hours and NPO Clear Liquids>2 hours Anesthesia Plan Resuscitation Status: Full Code Anesthesia Technique: General Anesthesia Airway Planned: Natural Airway Monitors Used: Standard Monitors Preoperative Comments:: 57 yo male patient with RLQ abdominal pain: Acute appendicitis. Last food 9/4 evening, black coffee 9/5 AM Sig PMHx: GERD (mostly in the past and diet related, ADHD, never smoker, occ EtOH.) Stress test 2019: LVEF 57%, no defects.
[2022-11-19 11:35] LABS: Bilirubin Negative (Negative); Blood Negative (Negative); Clarity Clear (Clear); Glucose Negative (Negative); Ketones 15 mg/dL (Negative); Leukocyte Esterase Negative (Negative); Nitrite Negative (Negative); Urobilinogen 0.2 mg/dL (Up to 0.2)
[2022-11-19] MEDS: PIPERACILLIN/TAZO 4.5 GM in Normal Saline 100 ML IVPB (11:42)
[2022-11-19] MEDS: fentaNYL 100 MCG/2 ML VIAL (11:43)
[2022-11-19 11:49] LABS: Epithelial Cells Rare HPF (Negative); RBC Negative HPF (0-2); WBC Negative HPF (0-5)
[2022-11-19 11:50] LABS: Bacteria Negative HPF (Negative); C & S Indicated? No; Casts 0-2 Hyaline LPF (Negative); Crystals Negative HPF (Negative); Mucus Negative (Negative)
[2022-11-19] MEDS: Lactated Ringers 1,000 ML 30 ML IV (12:35)
[2022-11-19] MEDS: Bupivacaine 0.25% Pres-Free 30 ML VIAL (13:11)
--- NOTE | 2022-11-19 13:16 | APP_PTH ---
PATIENT: Mino Soni LOC: [facility] U#:[id number] AGE/SX: 57/M ROOM: RE11/19/[address]: Lor Hendricks : 1965 BED: DIS: 11/19/2022 SPEC #: [id number] RECD: 11/20/22 12:53 STATUS: RICKY REDay #: [id number] KATHLEEN: 11/19/22 13:[address]: Lor Hendricks DEPT: Surgical Specimen RECD BY: Sarahy Harris ENTERED: 11/20/22 12:54 SP TYPE: Appendix OTHR DR: Imani Marte APRN Tissues: 1 - APPENDIX NOT INCIDENTAL Procedures: GROSS AND MICRO LEVEL 3 Comments: [id number]
--- NOTE | 2022-11-19 13:22 | W.PM.DSUDISC ---
Date of service: 11/19/22 Time of Service: 13:22 Discharge Plan Disposition Patient Disposition: Home Condition: Good Discharge Details Reason For Visit: removal appendix Attending Provider: Lor Hendricks Primary Care Provider: Imani Marte Home Meds and New Rx's Prescriptions: No Action Zyrtec 10 mg capsule 10 mg PO DAILY PRN ibuprofen 600 mg tablet 600 mg PO Q6H PRN Rx Instructions: joint/muscle pain acetaminophen [Tylenol Extra Strength] 500 mg tablet 1,000 mg PO Q6H PRN (Reason: headache/pain) dextroamphetamine-amphetamine 30 mg capsule,extended release 24hr 30 mg PO DAILY MDD 30mg Qty: 28 0RF Patient Comments: duplicate 11/19/22 CT dextroamphetamine-amphetamine [Adderall XR] 30 mg capsule,extended release 24hr 30 mg PO DAILY MDD 30 mg Qty: 28 0RF dextroamphetamine-amphetamine 30 mg capsule,extended release 24hr 30 mg PO DAILY MDD 30mg Qty: 28 0RF Patient Comments: duplicate 11/19/22 CT tamsulosin [Flomax] 0.4 mg capsule 0.8 mg PO DAILY Qty: 180 3RF Discharge Instructions Activity:: see above Remove Dressings/Wound Care:: 24 hours Shower/Bathe:: 24 hours Diet:: see above DS: Diagnosis Discharge Diagnosis (1) Acute appendicitis: Status: Acute (2) BPH w urinary obs/LUTS: Status: Acute (3) ADHD (attention deficit hyperactivity disorder), inattentive type: Status: Acute (4) Hyperlipidemia: Status: Acute (5) Tubulovillous adenoma of colon: Status: Acute
--- NOTE | 2022-11-19 13:35 | ROE_ITS ---
Date of service: 11/19/22 Time of Service: 13:37 Operative Note Operative Note DATE OF PROCEDURE: 11/19/22 PRE-OP DIAGNOSIS: Acute appendicitis POST-OP DIAGNOSIS: same PROCEDURE: Laparoscopic appendectomy SURGEON: Stacie Burns ASSISTANT COUNSEL: Zenaida Tejeda ANESTHESIA TYPE: Local By Surgeon and General LMA/ETT Refer to Anesthesia Record ESTIMATED BLOOD LOSS: 10 PATHOLOGY: other COMPLICATIONS: None Patient was transported to: PACU Patient's condition: stable Procedure Description: INDICATIONS: The patient has signs and symptoms compatible with acute appendicitis and is brought to the OR for laparoscopic appendectomy, possible open procedure. Informed consent is obtained for the procedural (explained in simple layman's t erms that the pt and/or family could understand) explaining risks vs benefits and alternatives to the procedure and consequences if we do not do the procedure. Risks include but are not limited to:bleeding,infections, pneumonia, blood clots/DVT/PE, anesthesia(aspiration, damage to teeth/airway/WA/CVA//prolonged mechanical ventilation/PTX/IV infections), damage to bowel, bladder,blood vessels, ureters. Damage to solid organs requiring removal. Infertility. Leakage from anastomosis requiring colostomy. Wound infections requirng further surgery. Scarring and disfigurement. Subsequent bowel obstructions from scar tissue. Possible open procedure if minimaly invsive procedure is being attempted. Abscess and stump appendicitis as well as others. DESCRIPTION OF PROCEDURE: The patient was brought to the operating room suite and placed in supine position. Anesthesia was administered per the Department of Anesthesia. A Frazier catheter and OG tube are placed. The patient was prepped and draped in the usual sterile fashion using ChloraPrep scrub solution. Pause for the cause was done. 30 mL of 1% buffered was used for local anesthetization. A stab incision was made in the umbilicus and the Veress was inserted. Drop test was positive and insufflation was begun. When 15 mm of pressure was noted on the monitor, the Veress was removed, a #5 port inserted. Camera inserted through the port shows no damage to underlying structures. Bowel, liver and stomach that are visualized are normal in appearance. Pelvic organs are not visualized. The appendix is inflamed, erythematous,enlarged, & distened, but does not appear to have been ruptured. There is no purulent drainage in the pelvis. It is not adhered to any adjacent structures. A 12 mm port was then placed in the suprapubic position under direct visualization following creation of a local field block as well as a second 5 mm port in the LLQ. The appendix is elevated and a rent dissected into the mesentery. The base of the appendix is healthy and will hold [place]. A Endo-ROE stapler is placed across the base of the appendix and fired and 2nd stapler placed across the mesentery and fired. The appendix is placed in a bag and brought out. There is no bleeding or enteric leakage from the staple lines. The pt does not require a drain. The abdomen was copiously irrigated with a liter of saline. All saline is evacuated. The scope and ports are removed. Pneumoperitoneum is evacuated. The fascia under the 12 mm port is closed with 0 Vicryl. There was no bleeding from the port sites as when they removed and the pneumoperitoneum evacuated. The wounds were copiously irrigated and closed in 2 layers with 4-0 Monocryl.? Skin glue is used.? Sterile dressings are applied. The patient tolerated the procedure without complication, transferred to the recovery room in stable condition. Family was apprised of patient condition. The patient can be discharged home later today. STACIE BURNS, DO
[2022-11-19] MEDS: fentaNYL 100 MCG/2 ML VIAL IVP (13:48)
--- NOTE | 2022-11-19 14:57 | W.ANESPOSTOP ---
Postoperative Evaluation Date, Time and Location Date Performed: 11/19/22 Time Performed: 14:57 Patient Location: Day Surgery Unit Vital Signs Most Recent Imported Vital Signs: Most Recent Vital Signs Temp Pulse Resp BP Pulse Ox 36.3 C L 55 L 17 117/85 95 11/19/22 14:30 11/19/22 14:30 11/19/22 14:30 11/19/22 14:30 11/19/22 14:30 Pain Score Most Recent Pain Score: Most Recent Pain Score Pain Level 4 11/19/22 14:30 Assessment Mental Status: Arousable with meaningful communication Airway and Respiratory Function: Patent airway with normal (patient baseline) respiratory exam Cardiovascular Function: Hemodynamically Stable Hydration Status: Adequately Hydrated Nausea & Vomiting: No Nausea or Vomiting Pain: Pt. Denies Any Pain Peripheral Nerve Block: Patient did not receive a nerve block
[2022-11-19] MEDS: Ketorolac 15 MG/ML VIAL IVP (15:25)
== END 2022-11-19 16:17 | disposition home or self-care (01) ==
LOC: ER 11:50 → SUR 11:59
PROVIDERS: Emergency Provider Student in an Organized Health Care Education/Training Program; PCP Nurse Practitioner; Visit Provider Surgery
PROC: 0DTJ4ZZ Resection of Appendix, Percutaneous Endoscopic Approach (ICD-10-PCS; CPT 44970; principal; 2022-11-19 12:15)
DX: K35.80 Unspecified acute appendicitis (principal); N40.1 Benign prostatic hyperplasia with lower urinary tract symptoms; N13.8 Other obstructive and reflux uropathy; E78.5 Hyperlipidemia, unspecified; Z86.010 Personal history of colon polyps; F90.9 Attention-deficit hyperactivity disorder, unspecified type; G47.00 Insomnia, unspecified
CPT/HCPCS: 44970; 80053; 83690; 74177; 81003; 81015; 83605; 85025; 88304; J0131; J1100; J1885; J2250; J2270; J2405; J2543; J2704; J3010

== ENCOUNTER 2023-07-23 12:17 | Outpatient (CLI) | payer BC, SELFPAY ==
--- NOTE | 2023-07-23 08:30 | DI.RAD_ITS ---
Exam(s) XR SHOULDER RT COMPLETE 2+V EXAM: XR SHOULDER RT COMPLETE 2+V CLINICAL HISTORY: evaluation of shoulder. TECHNIQUE: 2D digital imaging was performed of the right shoulder. Two images were obtained. Axill edin and Grashey views were obtained. COMPARISON: CR XR SHOULDER LT COMPLETE 2+V from 07/23/2023 FINDINGS: BONES: No acute fracture is present. No bony destructive lesion is seen. JOINTS: No dislocation present. The acromioclavicular and glenohumeral joints appear well maintained. SOFT TISSUE: The visualized lungs are clear. IMPRESSION: No acute abnormality. DATA REPOSITORY: RADIATION DOSE DELIVERED:
--- NOTE | 2023-07-23 08:30 | DI.RAD_ITS ---
Exam(s) XR SHOULDER LT COMPLETE 2+V EXAM: XR SHOULDER LT COMPLETE 2+V CLINICAL HISTORY: EVALUATION OF SHOULDER. TECHNIQUE: 2D digital imaging was performed of the left shoulder. Two images were obtained. AP, Gr ashey, Y-view and axillary views were obtained. COMPARISON: No exams were available for comparison FINDINGS: BONES: No acute fracture is present. No bony destructive lesion is seen. JOINTS: No dislocation present. The glenohumeral joint is well maintained. Mild degenerative changes are seen at the acromioclavicular joint. SOFT TISSUE: The visualized lungs are clear. IMPRESSION: Mild degenerative changes of the AC joint. DATA REPOSITORY: RADIATION DOSE DELIVERED:
== END 2023-07-23 12:18 | disposition home or self-care (01) ==
LOC: DIORS 12:20
PROVIDERS: PCP Nurse Practitioner; Visit Provider Student in an Organized Health Care Education/Training Program
DX: M25.511 Pain in right shoulder (principal); M25.512 Pain in left shoulder
CPT/HCPCS: 73030

== ENCOUNTER 2023-12-02 09:11 | Outpatient (CLI) | payer BC, SELFPAY ==
[2023-12-02 21:35] LABS: PSA, Screening 2.1 ng/mL (<=3.5)
== END 2023-12-02 09:12 | disposition home or self-care (01) ==
LOC: LBO 09:18
PROVIDERS: PCP Nurse Practitioner; Visit Provider Nurse Practitioner Gerontology
DX: R39.9 Unspecified symptoms and signs involving the genitourinary system (principal); F90.0 Attention-deficit hyperactivity disorder, predominantly inattentive type; N40.1 Benign prostatic hyperplasia with lower urinary tract symptoms; N13.8 Other obstructive and reflux uropathy
CPT/HCPCS: 36415; 84153

== ENCOUNTER 2025-02-16 09:11 | Outpatient (CLI) | payer BC, SELFPAY ==
--- NOTE | 2025-02-16 09:00 | RT.EKG_ITS ---
APPROVED REPORT Exam: Resting ECG Reason for Exam: eval for LVH Patient Location: O HR:62 bpm ECG Measurements Heart Rate 62 AXIS DE 168 P 14 QRSd 104 QRS -40 QT 418 T 9 QTc 425 Conclusion Sinus rhythm...normal P axis, V-rate 50- 99 Left anterior fascicular block...axis(240,-40), init forces inf
== END 2025-02-16 09:12 | disposition home or self-care (01) ==
LOC: DI.KIM 09:12
PROVIDERS: PCP Nurse Practitioner; Visit Provider Nurse Practitioner Family
DX: F90.0 Attention-deficit hyperactivity disorder, predominantly inattentive type (principal); R03.0 Elevated blood-pressure reading, without diagnosis of hypertension; I44.4 Left anterior fascicular block
CPT/HCPCS: 93010